=== PATIENT | female | born 1985 | race Caucasian/White ===

== ENCOUNTER 2020-07-30 21:54 | Emergency (ER) | payer BC ==
[2020-07-30 22:09] VITALS: BP 158/109; PULSE 110
[2020-07-30] MEDS ORDERED: predniSONE 20 MG Tab PO ONE (22:15)
[2020-07-30] MEDS ORDERED: Famotidine 20 MG Tab PO ONE (22:15)
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
== END 2020-07-30 22:45 | disposition home or self-care (01) ==
LOC: JD.ED 21:54
DX: T78.40XA Allergy, unspecified, initial encounter (principal); I10 Essential (primary) hypertension; Z88.0 Allergy status to penicillin; Z88.5 Allergy status to narcotic agent; Z79.899 Other long term (current) drug therapy
CPT/HCPCS: 99282; A9270; J7512; 99283